=== PATIENT | male | born 1985 | race Caucasian/White ===

== ENCOUNTER 2022-02-13 06:48 | Outpatient (CLI) | payer MEDICAID, SELFPAY | END 2022-02-13 06:49 | disposition home or self-care (01) | LOC: AMB 02-28 20:31 | PROVIDERS: Visit Provider Internal Medicine | DX: R07.89 Other chest pain (principal); R11.10 Vomiting, unspecified | CPT/HCPCS: A0425; A0427 ==

== ENCOUNTER 2022-02-13 07:21 | Emergency (ER) | payer MEDICAID, SELFPAY ==
[2022-02-13] VITALS (9 sets, daily range): BP systolic 103–125; BP diastolic 66–88; PULSE 74–97; RESP 16–22; TEMP 36.6–37.4; O2SAT 97–100; BMI 20.4
[2022-02-13] MEDS: ONDANSETRON 2 MG/ML inj 4 MG IVP (07:33)
--- NOTE | 2022-02-13 07:36 | ED_ITS ---
HPI - General Adult General Stated complaint: Heat exhaustion Time Seen by Provider: 02/13/22 07:34 History of Present Illness HPI narrative: Patient is a 36-year-old gentleman process he has been hiking in the [place] for the last month. He may of his girlfriend Yahir ayala had an argument with her. He has had a bike to nurse her and but after several hours of biking was found in [place] in a ditch vomiting. Does appear to be injured but is delirious. He demands to leave AMA unless we give him some water. He is very argumentative and does not seem to be very coherent at this time. He states he is not had any falls but has been vomiting repeatedly. Patient admits to using methamphetamine recently. No further history is available. Related Data Home Medications Medication Instructions Recorded Confirmed No Known Home Medications 02/13/22 02/13/22 Allergies Allergy/AdvReac Type Severity Reaction Status Date / Time benztropine [From Cogentin] Allergy Verified 02/13/22 07:53 Review of Systems Status of ROS: Reports: unobtainable due to mental status Exam Narrative: Exam Narrative: EXAM GENERAL: Patient appears manic and argumentative EYES: No scleral icterus. LYMPH: No supraclavicular or cervical lymphadenopathy. SKIN: Visible skin seen during exam normal or with benign process only. No skin breakdown noted no signs of infection. EXT: No dependent lower extremity pedal edema. HEART: Tachycardic LUNGS: Clear to auscultation bilaterally with no crackles or wheezes. ABD: Soft, non tender, non distended. PSYCH: Good eye contact, speech is not pressured. Neurologic release 2 through 12 grossly intact although patient appears to be delirious. Const: Vital Signs, click to edit/add: Vital Signs - 24 hr 02/13/22 07:40 Temperature 98.4 F Pulse Rate [Left P ulse Oximeter] 90 Respiratory Rate 22 Blood Pressure [Le ft Upper Arm] 120/86 Pulse Oximetry 100 Course Course Hospital Course: This time patient is threatening leave AMA so let him take some sips of water. We have been hydration with normal saline. Given 4 mg of Zofran have collected CBC CMP salicylate Tylenol alcohol urine toxicology. Reevaluation(s) Reevaluation #1: Patient has become more agitated and is now receiving 10 of Zyprexa and to of Ativan. He is threatening to staff. Time: 07:58 Vital Signs Vital signs: Initial Vital Signs Temperature 98.4 F 02/13/22 07:40 Temperature Source Temporal Artery Scan 02/13/22 07:40 Pulse Rate 90 02/13/22 07:40 Respiratory Rate 22 02/13/22 07:40 Blood Pressure 120/86 02/13/22 07:40 Blood Pressure Mean 97 02/13/22 07:40 Blood Pressure Position Sitting 02/13/22 07:40 Pulse Oximetry 100 02/13/22 07:40 Oxygen Delivery Method 02/13/22 07:40 Vital Signs Temperature 98.4 F 02/13/22 07:40 Pulse Rate 90 02/13/22 07:40 Respiratory Rate 22 02/13/22 07:40 Blood Pressure 120/86 02/13/22 07:40 Pulse Oximetry 100 02/13/22 07:40 Temperature 98.4 F 02/13/22 07:40 Pulse Rate 90 02/13/22 07:40 Respiratory Rate 02/13/22 07:40 Blood Pressure 120/86 02/13/22 07:40 Pulse Oximetry 100 02/13/22 07:40 Medical Decision Making Lab Data Labs: Lab Results 02/13/22 02/13/22 Range/Units 07:50 07:50 WBC 8.66 Cancelled (4.50-11.00) K/uL Corrected WBC Cancelled RBC 5.29 Cancelled (4.30-5.90) m/uL Hgb 15.2 Cancelled (13.5-17.5) gm/dL Hct 44.6 Cancelled (37.0-53.0) % MCV 84 Cancelled (80-100) fL MCH 29 Cancelled (26-34) pg MCHC 34 Cancelled (32-36) gm/dL RDW Coeff of [place] 12.8 Cancelled (11.5-15.5) % Plt Count 242 Cancelled (140-440) K/uL Neut % (Auto) 90.5 H Cancelled (42.0-72.0) % Lymph % (Auto) 4.2 L Cancelled (20-44) % [place] % (Auto) 4.6 Cancelled (0.0-11.0) % Eos % (Auto) 0.3 Cancelled (0.0-7.0) % Baso % (Auto) 0.3 Cancelled (0.0-3.0) % Neut # (Auto) 7.80 H Cancelled (1.7-7.0) K/uL Lymph # (Auto) 0.40 L Cancelled (0.90-2.90) K/uL [place] # (Auto) 0.40 Cancelled (0.00-0.90) K/UL Eos # (Auto) 0.03 Cancelled (0.00-0.50) K/uL Baso # (Auto) 0.03 Cancelled (0.00-0.30) K/uL Abs Immat Gran (auto) 0.01 Cancelled (0.00-0.30) K/uL Imm/Tot Granulo (auto) Cancelled Discharge Plan Discharge Prescriptions: No Action No Known Home Medications 0RF
[2022-02-13] MEDS: 0.9 % SODIUM CHLORIDE 500 ML 500 ML 1000 ML IV (07:38)
--- NOTE | 2022-02-13 07:55 | ED.NURSE ---
was aggresive and pulling at iv and monitors. getting off the cart. was jittery and shaky. was demanding to leave. had been very impulsive and asking for water when he was vomiting and retching. was upset with triage questions about suicidal questions. felt he was repeating himself with to many questions. dr najera was in and felt he needed to have further medical evaluation.
[2022-02-13 07:58] LABS: Basophils Absolute Auto 0.03 K/uL (0.00-0.30); Basophils Percent Auto 0.3 % (0.0-3.0); Eosinophils Absolute Auto 0.03 K/uL (0.00-0.50); Eosinophils Percent Auto 0.3 % (0.0-7.0); Hematocrit 44.6 % (37.0-53.0); Hemoglobin* 15.2 gm/dL (13.5-17.5); Immature Granulocytes Abs Auto 0.01 K/uL (0.00-0.30); Lymphocytes Percent Auto 4.2 % (20-44); Mean Corpuscular HGB Conc 34 gm/dL (32-36); Mean Corpuscular Hemoglobin 29 pg (26-34); Mean Corpuscular Volume 84 fL (80-100); Monocytes Percent Auto 4.6 % (0.0-11.0); Neutrophils Percent Auto 90.5 % (42.0-72.0); Platelet Count* 242 K/uL (140-440); RDW Coefficient of Variation % 12.8 % (11.5-15.5); Red Blood Count 5.29 m/uL (4.30-5.90); White Blood Count* 8.66 K/uL (4.50-11.00)
[2022-02-13] MEDS: OLANZapine 5 MG/ML inj 10 MG IM (08:00)
[2022-02-13 08:01] LABS: Slide Review Reflex No
[2022-02-13] MEDS: LORazepam 2 MG/ML inj IVP (08:06)
--- NOTE | 2022-02-13 08:12 | ED.NURSE ---
pt became upset with triage questions, specifically about depression and suicide. Pt wanted to leave and attempted to pull out IV. Was able to get tape off IV. Conveyor Feeder grabbed pt's arm over IV to keep Iv from coming out. Dr Smallwood called by security. IV was secured when additional nurses arrived. Dr Raphael present and ordered zyprexa to be given IM. Pt became calf after injection and was able to be redirected back into bed.
[2022-02-13 08:22] LABS: Albumin* 4.7 g/dL (3.3-5.0); Chloride* 104 mmol/L (96-114)
[2022-02-13 08:23] LABS: Potassium* 3.5 mmol/L (3.6-5.1); Sodium* 139 mmol/L (135-149)
[2022-02-13 08:24] LABS: Est. Creatinine Clearance* 85.65; Estimated Glomerular Filt Rate 99 ml/min
[2022-02-13 08:25] LABS: Alanine Aminotransferase* 34 U/L (4-50); Alkaline Phosphatase* 67 U/L (40-150); Aspartate Amino Transferase* 55 U/L (12-35); Bilirubin Total* 1.6 mg/dL (0.1-1.5); Blood Urea Nitrogen* 37 mg/dL (5-24); Carbon Dioxide* 22 mmol/L (20-32); Glucose* 100 mg/dL (60-115); Total Protein* 7.5 g/dL (6.0-8.3)
[2022-02-13 08:26] LABS: Acetaminophen* < 10.0 ug/mL (10.0-30.0); Calcium* 8.8 mg/dL (8.4-10.6); Salicylate* < 1.0 mg/dL (1.0-10)
[2022-02-13 08:27] LABS: Ethanol* < 0.01 % (0.01-0.03)
[2022-02-13] MEDS: NICOTINE 21 MG PATCH 1 PATCH TRANSDERMA (08:36)
[2022-02-13] MEDS: 0.9 % SODIUM CHLORIDE 500 ML 500 ML IV (08:46)
[2022-02-13 10:09] LABS: Creatine Kinase* 1252 U/L (54-186)
[2022-02-13 10:25] LABS: Troponin I* < 0.01 ng/mL (0.01-0.04)
--- NOTE | 2022-02-13 16:10 | ED.NURSE ---
did awaken and sat up. was reassured that he was in the ED and he did want to rest, sleep again. did want to eat. regular diet was ordered. denies need to urinate, as a ua is needed yet
--- NOTE | 2022-02-13 16:17 | ED.NURSE ---
was provided with a regular lunch-supper tray (safety). is very hungry and eagerly eating the food that was provided. is very thankful and cooperative.
[2022-02-13 16:41] LABS: Appearance Urine Clear (Clear); Bilirubin Urine Negative (Negative); Blood Urine 1+ (Negative); Color Urine Yellow (Yellow); Glucose Urine Negative (Negative); Ketones Urine 1+ (Negative); Leukocyte Esterase Urine Negative (Negative); Nitrite Urine Negative (Negative); Protein Urine Negative (Negative); Specific Gravity Urine >= 1.030 (1.000-1.030); Urobilinogen Urine 0.2 (0.2-1.0); pH Urine 5.5 (5.0-8.5)
--- NOTE | 2022-02-13 16:42 | ED.NURSE ---
voided 475 ml of danelle urine. ua was sent to lab. is steady on feet.
[2022-02-13 16:54] LABS: Bacteria Urine Few; Squamous Epithelial Cell Urine Few (None-Few); WBC Urine 0-2 (0-5)
[2022-02-13 16:58] LABS: Cannabinoid Screen Urine POSITIVE (Negative); Cocaine Screen Urine Negative (Negative); Methamphetamines Screen Urine POSITIVE (Negative); Opiate Screen Urine Negative (Negative); Phencyclidine Screen Urine Negative (Negative)
[2022-02-13 16:59] LABS: Amphetamine Screen Urine POSITIVE (Negative); Barbiturate Screen Urine Negative (Negative); Benzodiazepines Screen Urine POSITIVE (Negative); Methadone Screen Urine Negative (Negative); Oxycodone Screen Urine Negative (Negative); Tricyclic Antidepressant Urine Negative (Negative)
--- NOTE | 2022-02-13 17:25 | ED.NURSE ---
is sleeping, sonorous respirations.
--- NOTE | 2022-02-13 17:30 | ED.NURSE ---
when awakened by nurse and asked if he would like to go home states that he would like to go to detox. dr moy was informed.
--- NOTE | 2022-02-13 17:43 | ED.GENADULT ---
HPI - General Adult General Chief complaint: Nausea/Vomiting Stated complaint: Heat exhaustion Time Seen by Provider: 02/13/22 07:34 Related Data Home Medications Medication Instructions Recorded Confirmed No Known Home Medications 02/13/22 02/13/22 Allergies Allergy/AdvReac Type Severity Reaction Status Date / Time benztropine [From Cogentin] Allergy Verified 02/13/22 07:53 PFSH PFSH Social History Smoking Status: Current every day smoker What tobacco products do you use: cigarettes Do you use any of these nicotine containing products: Vaping Products Second hand tobacco smoke exposure: No Non-prescribed substance use: marijuana (any form), crack/cocaine and amphetamines/methamphetamines Exam Const: Vital Signs, click to edit/add: Vital Signs - 24 hr 02/13/22 21:29 Pulse Rate [Left P ulse Oximeter] 91 Respiratory Rate 16 Blood Pressure [Le ft Upper Arm] 125/88 Pulse Oximetry 98 Course Course Hospital Course: This time patient is threatening leave AMA so let him take some sips of water. We have been hydration with normal saline. Given 4 mg of Zofran have collected CBC CMP salicylate Tylenol alcohol urine toxicology. Vital Signs Vital signs: Initial Vital Signs Temperature 98.4 F 02/13/22 07:40 Temperature Source Temporal Artery Scan 02/13/22 07:40 Pulse Rate 90 02/13/22 07:40 Respiratory Rate 22 02/13/22 07:40 Blood Pressure 120/86 02/13/22 07:40 Blood Pressure Mean 97 02/13/22 07:40 Blood Pressure Position Sitting 02/13/22 07:40 Pulse Oximetry 100 02/13/22 07:40 Oxygen Delivery Method 02/13/22 07:40 Vital Signs Temperature 98.4 F 02/13/22 07:40 Pulse Rate 90 02/13/22 07:40 Respiratory Rate 22 02/13/22 07:40 Blood Pressure 120/86 02/13/22 07:40 Pulse Oximetry 100 02/13/22 07:40 Oxygen Delivery Method 02/13/22 07:40 Temperature 99.4 F 02/13/22 18:00 Pulse Rate 91 02/13/22 21:29 Respiratory Rate 16 02/13/22 21:29 Blood Pressure 125/88 02/13/22 21:29 Pulse Oximetry 98 02/13/22 21:29 Oxygen Delivery Method 02/13/22 21:29 Medical Decision Making Lab Data Labs: Lab Results 02/13/22 02/13/22 02/13/22 Range/Units 07:50 07:50 07:50 WBC 8.66 Cancelled (4.50-11.00) K/uL Corrected WBC Cancelled RBC 5.29 Cancelled (4.30-5.90) m/uL Hgb 15.2 Cancelled (13.5-17.5) gm/dL Hct 44.6 Cancelled (37.0-53.0) % MCV 84 Cancelled (80-100) fL MCH 29 Cancelled (26-34) pg MCHC 34 Cancelled (32-36) gm/dL RDW Coeff of [place]el[place] 12.8 Cancelled (11.5-15.5) % Plt Count 242 Cancelled (140-440) K/uL Neut % (Auto) 90.5 H Cancelled (42.0-72.0) % Lymph % (Auto) 4.2 L Cancelled (20-44) % [place] % (Auto) 4.6 Cancelled (0.0-11.0) % Eos % (Auto) 0.3 Cancelled (0.0-7.0) % Baso % (Auto) 0.3 Cancelled (0.0-3.0) % Neut # (Auto) 7.80 H Cancelled (1.7-7.0) K/uL Lymph # (Auto) 0.40 L Cancelled (0.90-2.90) K/uL [place] # (Auto) 0.40 Cancelled (0.00-0.90) K/UL Eos # (Auto) 0.03 Cancelled (0.00-0.50) K/uL Baso # (Auto) 0.03 Cancelled (0.00-0.30) K/uL Abs Immat Gran (auto) 0.01 Cancelled (0.00-0.30) K/uL Imm/Tot Granulo (auto) Cancelled Sodium 139 (135-149) mmol/L Potassium 3.5 L (3.6-5.1) mmol/L Chloride 104 (96-114) mmol/L Carbon Dioxide 22 (20-32) mmol/L BUN 37 H (5-24) mg/dL Creatinine 1.0 (0.5-1.5) mg/dL Estimated Creat Clear 85.65 Estimated GFR 99 ml/min Glucose 100 (60-115) mg/dL Calcium 8.8 (8.4-10.6) mg/dL Total Bilirubin 1.6 H (0.1-1.5) mg/dL AST 55 H (12-35) U/L ALT 34 (4-50) U/L Alkaline Phosphatase 67 (40-150) U/L Total Creatine Kinase (54-186) U/L Troponin I (0.01-0.04) ng/mL Total Protein 7.5 (6.0-8.3) g/dL Albumin 4.7 (3.3-5.0) g/dL Urine Color (Yellow) Urine Appearance (Clear) Urine pH (5.0-8.5) Ur Specific [place] (1.000-1.030) Urine Protein (Negative) Urine Glucose (UA) (Negative) Urine Ketones (Negative) Urine Blood (Negative) Urine Nitrite (Negative) Urine Bilirubin (Negative) Urine Urobilinogen (0.2-1.0) Ur Leukocyte Esterase (Negative) Urine RBC (0-2) Urine WBC (0-5) Ur Squamous Epith Cells (None-Few) Amorphous Sediment (None) Urine Bacteria (None) Salicylates < 1.0 L (1.0-10) mg/dL Urine Opiates Screen (Negative) Ur Oxycodone Screen (Negative) Urine Methadone Screen (Negative) Ur Propoxyphene Screen (Negative) Acetaminophen < 10.0 L (10.0-30.0) ug/mL Ur Barbiturates Screen (Negative) U Tricyclic Antidepress (Negative) Ur Phencyclidine Scrn (Negative) Ur Amphetamines Screen (Negative) U Methamphetamines Scrn (Negative) U Benzodiazepines Scrn (Negative) Urine Cocaine Screen (Negative) U Marijuana (THC) Screen (Negative) Ur Drug Screen Comment Ethyl Alcohol < 0.01 L (0.01-0.03) % 02/13/22 02/13/22 02/13/22 Range/Units 07:50 16:30 16:30 WBC (4.50-11.00) K/uL Corrected WBC RBC (4.30-5.90) m/uL Hgb (13.5-17.5) gm/dL Hct (37.0-53.0) % MCV (80-100) fL MCH (26-34) pg MCHC (32-36) gm/dL RDW Coeff of [place] (11.5-15.5) % Plt Count (140-440) K/uL Neut % (Auto) (42.0-72.0) % Lymph % (Auto) (20-44) % [place] % (Auto) (0.0-11.0) % Eos % (Auto) (0.0-7.0) % Baso % (Auto) (0.0-3.0) % Neut # (Auto) (1.7-7.0) K/uL Lymph # (Auto) (0.90-2.90) K/uL [place] # (Auto) (0.00-0.90) K/UL Eos # (Auto) (0.00-0.50) K/uL Baso # (Auto) (0.00-0.30) K/uL Abs Immat Gran (auto) (0.00-0.30) K/uL Imm/Tot Granulo (auto) Sodium (135-149) mmol/L Potassium (3.6-5.1) mmol/L Chloride (96-114) mmol/L Carbon Dioxide (20-32) mmol/L BUN (5-24) mg/dL Creatinine (0.5-1.5) mg/dL Estimated Creat Clear Estimated GFR ml/min Glucose (60-115) mg/dL Calcium (8.4-10.6) mg/dL Total Bilirubin (0.1-1.5) mg/dL AST (12-35) U/L ALT (4-50) U/L Alkaline Phosphatase (40-150) U/L Total Creatine Kinase 1252 H (54-186) U/L Troponin I < 0.01 L (0.01-0.04) ng/mL Total Protein (6.0-8.3) g/dL Albumin (3.3-5.0) g/dL Urine Color Yellow (Yellow) Urine Appearance Clear (Clear) Urine pH 5.5 (5.0-8.5) Ur Specific [place] >= 1.030 (1.000-1.030) Urine Protein Negative (Negative) Urine Glucose (UA) Negative (Negative) Urine Ketones 1+ A (Negative) Urine Blood 1+ A (Negative) Urine Nitrite Negative (Negative) Urine Bilirubin Negative (Negative) Urine Urobilinogen 0.2 (0.2-1.0) Ur Leukocyte Esterase Negative (Negative) Urine RBC 2-5 A (0-2) Urine WBC 0-2 (0-5) Ur Squamous Epith Cells Few (None-Few) Amorphous Sediment (None) Urine Bacteria Few A (None) Salicylates (1.0-10) mg/dL Urine Opiates Screen Negative (Negative) Ur Oxycodone Screen Negative (Negative) Urine Methadone Screen Negative (Negative) Ur Propoxyphene Screen Negative (Negative) Acetaminophen (10.0-30.0) ug/mL Ur Barbiturates Screen Negative (Negative) U Tricyclic Antidepress Negative (Negative) Ur Phencyclidine Scrn Negative (Negative) Ur Amphetamines Screen POSITIVE A* (Negative) U Methamphetamines Scrn POSITIVE A* (Negative) U Benzodiazepines Scrn POSITIVE A* (Negative) Urine Cocaine Screen Negative (Negative) U Marijuana (THC) Screen POSITIVE A* (Negative) Ur Drug Screen Comment See Note Ethyl Alcohol (0.01-0.03) % 02/13/22 Range/Units 17:49 WBC (4.50-11.00) K/uL Corrected WBC RBC (4.30-5.90) m/uL Hgb (13.5-17.5) gm/dL Hct (37.0-53.0) % MCV (80-100) fL MCH (26-34) pg MCHC (32-36) gm/dL RDW Coeff of [place]el[place] (11.5-15.5) % Plt Count (140-440) K/uL Neut % (Auto) (42.0-72.0) % Lymph % (Auto) (20-44) % [place] % (Auto) (0.0-11.0) % Eos % (Auto) (0.0-7.0) % Baso % (Auto) (0.0-3.0) % Neut # (Auto) (1.7-7.0) K/uL Lymph # (Auto) (0.90-2.90) K/uL [place] # (Auto) (0.00-0.90) K/UL Eos # (Auto) (0.00-0.50) K/uL Baso # (Auto) (0.00-0.30) K/uL Abs Immat Gran (auto) (0.00-0.30) K/uL Imm/Tot Granulo (auto) Sodium (135-149) mmol/L Potassium (3.6-5.1) mmol/L Chloride (96-114) mmol/L Carbon Dioxide (20-32) mmol/L BUN (5-24) mg/dL Creatinine (0.5-1.5) mg/dL Estimated Creat Clear Estimated GFR ml/min Glucose (60-115) mg/dL Calcium (8.4-10.6) mg/dL Total Bilirubin (0.1-1.5) mg/dL AST (12-35) U/L ALT (4-50) U/L Alkaline Phosphatase (40-150) U/L Total Creatine Kinase 626 H (54-186) U/L Troponin I (0.01-0.04) ng/mL Total Protein (6.0-8.3) g/dL Albumin (3.3-5.0) g/dL Urine Color (Yellow) Urine Appearance (Clear) Urine pH (5.0-8.5) Ur Specific [place] (1.000-1.030) Urine Protein (Negative) Urine Glucose (UA) (Negative) Urine Ketones (Negative) Urine Blood (Negative) Urine Nitrite (Negative) Urine Bilirubin (Negative) Urine Urobilinogen (0.2-1.0) Ur Leukocyte Esterase (Negative) Urine RBC (0-2) Urine WBC (0-5) Ur Squamous Epith Cells (None-Few) Amorphous Sediment (None) Urine Bacteria (None) Salicylates (1.0-10) mg/dL Urine Opiates Screen (Negative) Ur Oxycodone Screen (Negative) Urine Methadone Screen (Negative) Ur Propoxyphene Screen (Negative) Acetaminophen (10.0-30.0) ug/mL Ur Barbiturates Screen (Negative) U Tricyclic Antidepress (Negative) Ur Phencyclidine Scrn (Negative) Ur Amphetamines Screen (Negative) U Methamphetamines Scrn (Negative) U Benzodiazepines Scrn (Negative) Urine Cocaine Screen (Negative) U Marijuana (THC) Screen (Negative) Ur Drug Screen Comment Ethyl Alcohol (0.01-0.03) % Discharge Plan Discharge Clinical Impression: Acute drug intoxication Patient Disposition: Xfer Other Condition: Improved Prescriptions: No Action No Known Home Medications Stand Alone Forms: [employer] Info Instructions
--- NOTE | 2022-02-13 17:48 | ED.NURSE ---
Addendum entered by Catalina Jalloh RN 02/13/22 19:17: dr moy not dr oneil was informed . Original Note: [facility], [facility], was called and requesting a summary. took information from this typewriter operator automatic, kory took the intake information, . fax #[phone]. dr oneil will update the chart.
[2022-02-13 18:30] LABS: Creatine Kinase* 626 U/L (54-186)
--- NOTE | 2022-02-13 18:32 | ED.NURSE ---
has had 500 ml of ns from ems. has been retching and vomiting.
--- NOTE | 2022-02-13 21:13 | ED.NURSE ---
Report given to facility. PT to be transferred after 10 pm.
--- NOTE | 2022-02-13 21:59 | ED.NURSE ---
[facility] left with pt, report given.
--- NOTE | 2022-02-13 22:00 | ED.NURSE ---
pt belonging with EMS upon departure.
== END 2022-02-13 22:00 | disposition other institution (70) ==
PROVIDERS: Internal Medicine; Emergency Provider Family Medicine
DX: F15.20 Other stimulant dependence, uncomplicated (principal)
CPT/HCPCS: 36415; 80053; 80143; 80179; 80306; 81003; 81015; 82077; 82550; 84484; 85025; 87086; 93005; 96372; 96374; 96375; 99281; 99283; J2060; J2405; J7120; S0166; S4990

== ENCOUNTER 2022-02-13 21:50 | Outpatient (CLI) | payer MEDICAID, SELFPAY | END 2022-02-13 21:51 | disposition home or self-care (01) | LOC: AMB 03-03 21:07 | PROVIDERS: Visit Provider Family Medicine | DX: F15.10 Other stimulant abuse, uncomplicated (principal) | CPT/HCPCS: A0425; A0428 ==